=== PATIENT | female | born 1950 | race Caucasian/White ===

== ENCOUNTER 2024-05-15 07:32 | Day surgery (SDC) | payer MEDICARE ==
[~2024-05-15] VITALS: Ht 154.9 cm; Wt 129.6 kg
[~2024-05-15 07:32] MED LIST: ALBU8HFA INH; APIX5TAB3 PO; CALCIUM; DOCU-148 PO; GABA-530 PO; HYDR12.55 PO; MAGNESIUM; MEGE40TA5 PO; METO-395 PO; OXYB5TAB21 PO; ROPI0.5T37 PO; [UNRECOGNIZED DRUG - MIXTURE]
[2024-05-15 08:08] VITALS: BP 116/66; PULSE 94; RESP 21
[2024-05-15] MEDS ORDERED: midazolam 1 mg/ML 2ml injection ONE (08:43)
[2024-05-15] MEDS ORDERED: fentaNYL/PF 50MCG/1 ML 2ML syringe ONE (08:43)
[2024-05-15] MEDS ORDERED: propofol inj 20 ML IV ONE (08:50)
[2024-05-15 09:09] VITALS: BP 107/62; PULSE 70; RESP 17; O2SAT 91
[2024-05-15 09:19] VITALS: BP 108/64; PULSE 80; RESP 18; O2SAT 94
[2024-05-15 09:29] VITALS: BP 114/74; PULSE 80; RESP 22; O2SAT 97
== END 2024-05-15 09:40 | disposition home or self-care (01) ==
LOC: GI LAB 07:32
PROVIDERS: ATTEND Internal Medicine Gastroenterology
DX: R19.5 Other fecal abnormalities (principal); D12.2 Benign neoplasm of ascending colon; I10 Essential (primary) hypertension; E66.01 Morbid (severe) obesity due to excess calories; J45.909 Unspecified asthma, uncomplicated; G47.33 Obstructive sleep apnea (adult) (pediatric); M81.0 Age-related osteoporosis without current pathological fracture; I25.2 Old myocardial infarction; Z86.73 Personal history of transient ischemic attack (TIA), and cerebral infarction without residual deficits; Z79.01 Long term (current) use of anticoagulants; Z79.899 Other long term (current) drug therapy; Z90.49 Acquired absence of other specified parts of digestive tract; Z90.710 Acquired absence of both cervix and uterus; Z98.890 Other specified postprocedural states; Z68.43 Body mass index [BMI] 50.0-59.9, adult
CPT/HCPCS: 45385; A4620; C1889; J2250; J2704; J3010; J7030; Z7512; 45380